=== PATIENT | female | born 1995 | race Caucasian/White ===

== ENCOUNTER 2016-02-25 12:16 | Emergency (ER) | payer BC ==
[2016-02-25 12:20] VITALS: RESP 16; O2SAT 99
--- NOTE | 2016-02-25 14:17 | EDPHY ---
H & P Time Seen by Provider: 02/25/16 14:14 HPI/ROS: HPI: 20-year-old female presents to emergency department with chief concern fall, head injury, loss of consciousness, facial pain and swelling. Symptoms onset 3 days ago when she fell off of a chair forward, striking the left aspect of her head on a closet, and proceeding to hit the floor, face 1st. Reports loss of conscious intermittently over an hour. Reports ongoing dizziness and nausea. Reports forehead, supraorbital, nasal pain, swelling. Denies fever, headache, visual changes, neck or back pain. No vomiting. No previous head injury. Student at [employer]. ROS:10 point review of systems is negative other than as stated in HPI Smoking Status: Never smoked Physical Exam: VS: Reviewed by me, see NN. General: Well developed, well nourished, in no acute distress. Head: Normalocephalic. Atraumatic. Face: Nasal ecchymosis and swelling. Supraorbital and frontal ecchymosis and swelling. EENT: PERRLA. EOMI. No nystagmus. TMs intact bilaterally with normal landmarks. No rhinnorhea, nasal passages clear. Oropharynx without trauma or malocclusion. Neck: Supple, nontender. No midline tenderness. No tenderness with range of motion. Chest: Nontender, no subcutaneous air palpable. Respiratory: Breathing unlabored. Breath sounds equal bilaterally and clear to auscultation. No adventitious sounds. CV: Chest nontender, atraumatic. Heart rate regular. No murmur, distal pulses 2+ bilaterally. Brisk cap refill all extremities. GI: Abdomen soft, nontender. Nondistended. Bowel sounds normoactive and positive x4 quadrants. Back: No midline thoracic or lumbar tenderness. Neuro: Alert. Oriented x 3. Speech clear. Nonfocal cranial nerves throughout. Sensation intact all extremities. Normal motor. Strength equal in 5 + all extremities. Rapid alternating hand motions in intact. Negative Romberg. Heel to mcgee intact. 3/3 objects at 5 minutes intact. Skin: Skin warm, dry, intact. Atraumatic. Extremities: Atraumatic. Normal range of motion. Constitutional: Initial Vital Signs Temperature (C) 36.8 C 02/25/16 12:18 Heart Rate 77 02/25/16 12:18 Respiratory Rate 16 02/25/16 12:18 Blood Pressure 112/79 02/25/16 12:18 O2 Sat (%) 99 02/25/16 12:18 O2 Delivery Mode Room Air Allergies/Adverse Reactions: bubba Allergy (Verified 10/18/15 01:16) orange juice [oranges] Allergy (Verified 10/18/15 01:16) Home Medications: Medication Instructions Recorded Amitriptyline HCl 10/18/15 Hydrocodone/APAP 5/325 [[place] 1 tab PO Q6H #10 tab 10/31/15 5/325 (*)] Naprosyn 10/31/15 [id number] Estr/Ethin Estra 10/31/15 [Ashlyna 0.15-0.03-0.01 mg Tab] Ondansetron Odt [Zofran Odt 4 mg 4 mg PO Q6 PRN #10 tab 02/25/16 (*)] Medical Decision Making - Diagnostics Imaging: Maxillofacial CT and head CT negative ED Course/Re-evaluation: 20-year-old female presents to emergency department with fall, head injury, ongoing dizziness and nausea. Has facial ecchymosis swelling. Concern for fractures. CT maxillofacial and head ordered and pending. Patient declines pain medication presently. Differential Diagnosis: Differential diagnosis includes but is not limited to skull fracture, facial fracture, intracranial bleed, intracranial contusion, concussion - Data Points Laboratory Results: 02/25/16 14:33 Urine Test NEGATIVE Departure - Departure Disposition: Home, Routine, Self-Care Clinical Impression: Concussion Head injury due to trauma Qualifiers: Encounter type: initial encounter Qualifier Code: (S09.90XA) Unspecified injury of head, initial encounter Condition: Good Instructions: Concussion (ED), Head Injury (ED) Additional Instructions: Plan: CT scan of the head negative for evidence of intracranial bleed or skull fracture Maxillofacial CT scan negative for evidence of facial fractures You may use 600 mg of ibuprofen every 6 hours for fever, inflammation, or pain. Always take ibuprofen with food and stay well hydrated while taking. Do not exceed the maximum allowable dose in a 24 hour period which is 2400 mg. You may use 650 mg of Tylenol every 8 hours. This may be staggered with the ibuprofen. Do not exceed the maximum dose in a 24 hour period which is 3 GM or 3000 mg. May use Zofran 1 tablet every 6 hours as needed for nausea Follow up at [facility] tomorrow for recheck--When you call to schedule appointment, please let the office know you are an "ER follow up" appointment" Take your paperwork to your follow-up appointment Referrals: OUT OF STATE,. [Primary Care Provider] - As per Instructions [facility] [Outside] - As per Instructions Prescriptions: Ondansetron Odt [Zofran Odt 4 mg (*)] 4 mg PO Q6 PRN #10 tab PRN Reason: nausea
--- NOTE | 2016-02-25 15:51 | CT ---
CT Head Without Contrast History: Fall 3 days ago, loss of consciousness. Comparison: CT facial bones same day. Technique: Axial unenhanced images were obtained from the vertex through the skull base. Dose reducti on techniques were utilized. Findings: Van-white differentiation is preserved. The ventricles and sulci are normal. No intracra nial hemorrhage is identified. No extraaxial fluid collections are identified. There is no mass effe ct or evidence of infarct. The skull and skull base are unremarkable. Mild mucous membrane thickeni ng is present in the paranasal sinuses. There is an equivocal air-fluid level in the right maxillary sinus. The mastoid air cells are clear. Impression: No acute intracranial findings. Findings discussed with Justyna Rivero NP today at 1537 hours.
--- NOTE | 2016-02-25 16:01 | CT ---
CT Facial Bones (Without Contrast) History: Fall 3 days ago with loss of consciousness, fell on left head and then face. Comparison: CT head same day. Technique: Axial images were obtained through the facial bones and coronal reformations were perfor med. The data was reformatted in bone algorithm. Dose reduction techniques were utilized. Findings: No fracture is identified. Mild mucous membrane thickening is present in the paranasal si nuses with an equivocal air-fluid level in the right maxillary sinus. The ostiomeatal units are parti ally opacified. The mastoid air cells are clear. The visible mastoid air cells are clear. The visible brain and orbits are normal. The temporomandibular joints are aligned. Impression: 1. No fracture identified. 2. Possible mild sinusitis. Findings discussed with Justyna Rivero NP, today at 1538 hours.
[2016-02-25 16:05] VITALS: BP 110/81; PULSE 70; TEMP 99
== END 2016-02-25 16:05 | disposition home or self-care (01) ==
DX: S06.0X0A Concussion without loss of consciousness, initial encounter (principal); W07.XXXA Fall from chair, initial encounter